=== PATIENT | female | born 1975 | race Two or more races ===

== ENCOUNTER 2018-08-08 20:58 | Emergency (ER) | payer OTHER ==
[~2018-08-08] VITALS: Ht 142.2 cm; Wt 75.7 kg
[2018-08-08] MEDS ORDERED: ALBUTEROL SULF8.5 GM INH (21:12)
[2018-08-08] MEDS ORDERED: QVAR7.3 GM INH (21:12)
[2018-08-08 21:15] VITALS: BP 141/106
--- NOTE | 2018-08-08 21:15 | NUR ---
ED Nurse Note: Evette walked into ED c/o 10/25 lower back pain, patient states that she just woke up with this pain to which it tarted last night, patient states that seh did not fall nor participate in any activities, patient is alert and oriented x4, ambulatory with a steady gait, VSS
[2018-08-08] MEDS ORDERED: Morphine Sulfate 10mg/ml Inj IM ONE (21:30)
[2018-08-08] MEDS ORDERED: IBUPROFEN600 MG ORAL (21:38)
[2018-08-08] MEDS ORDERED: HYDROCODON-ACE1 EA15 ORAL (21:38)
--- NOTE | 2018-08-08 21:39 | Emergency Room Report ---
History of Present Illness General Chief Complaint: Lower Back Pain or Injury Source: Patient Present Illness HPI This is a 42-year-old female with history of asthma. She presents with lower back pain. Onset last night. No trauma. Pain is over the sacrum area and radiate to the buttock area. Worse with certain movement. No fever or chills. No numbness. No nausea no vomiting. No incontinence of bowel or urine. Pain is 8 out of 10. Better with certain position. Worse with movement. Allergies: Coded Allergies: No Known Allergies (Unverified , 08/08/18) Patient History Past Medical History: see triage record, old chart reviewed Past Surgical History: none Pertinent Family History: none Social History: Denies: smoking Last Menstrual Period: 07/26/2018 Now: No Nursing Documentation-[facility] [place] Past Medical History: No History, Except For Hx Asthma: Yes Hx Neurological Problems: Yes - anxiety Review of Systems Eye: Denies: eye pain, blurred vision ENT: Denies: ear pain, nose congestion, throat swelling Respiratory: Denies: cough, shortness of breath Cardiovascular: Denies: chest pain, palpitations Gastrointestinal: Denies: abdominal pain, diarrhea, nausea, vomiting Musculoskeletal: Reports: back pain; Denies: joint pain Skin: Denies: rash Neurological: Denies: headache, numbness Endocrine: Denies: increased thirst, increased urine Hematologic/Lymphatic: Denies: easy bruising All Other Systems: negative except mentioned in HPI Physical Exam Vital Signs Date Time Temp Pulse Resp B/P (MAP) Pulse Ox O2 Delivery O2 Flow Rate FiO2 08/08/18 21:09 98.1 101 16 141/106 99 Room Air vitals normal except for high blood pressure Sp02 EP Interpretation: reviewed, normal General Appearance: well appearing, no apparent distress, alert Head: normocephalic, atraumatic Eyes: bilateral eye PERRL, bilateral eye EOMI ENT: hearing grossly normal, normal pharynx Neck: full range of motion, supple, no meningismus Respiratory: chest non-tender, lungs clear, normal breath sounds Cardiovascular #1: regular rate, rhythm, no murmur Gastrointestinal: normal bowel sounds, non tender, no mass, no organomegaly, no bruit, non-distended Musculoskeletal: back normal - Tenderness to the left mid sacrum., gait/ station normal, normal range of motion Neurologic: alert, oriented x3 Psychiatric: mood/affect normal Skin: warm/dry Medical Decision Making Diagnostic Impression: Primary Impression: Low back pain Qualified Codes: M54.5 - Low back pain ER Course Patient presents with lower back pain with sacroiliitis. No evidence of cauda equina syndrome, spinal or abscess or neoplastic process. No trauma to warrant x-rays. We'll discharge home. Recommend outpatient MRI if not better. Last Vital Signs Date Time Temp Pulse Resp B/P (MAP) Pulse Ox O2 Delivery O2 Flow Rate FiO2 08/08/18 21:15 98.1 83 16 141/106 99 Room Air Status: improved Disposition: HOME, SELF-CARE Condition: Stable Scripts Ibuprofen* (MOTRIN*) 600 Mg Tablet 600 MG ORAL THREE TIMES A DAY, #30 TAB 0 Refills Prov: Ramy Colón MD 08/08/18 Hydrocodone/Acetaminophen 5-325* (HYDROCODONE/ACETAMINOPHEN 5-325*) 1 Each Tablet 1 TAB ORAL Q6H PRN for For Pain, #20 TAB 0 Refills Prov: Ramy Colón MD 08/08/18 Patient Instructions: Back Pain, Adult Additional Instructions: Follow-up with your doctor in 7 days. No heavy lifting. If not better, you may need an MRI. Return if worse. Ramy Colón MD Aug 08, 2018 21:38
[2018-08-08 21:44] VITALS: BP 143/89
--- NOTE | 2018-08-08 21:44 | NUR ---
ER DISCHARGE NOTE: Patient is cleared to be discharged per Dr. Colón. Pain meds given as ordered. Pt is aox4 on room air with stable vital signs. Pt was given dc and prescription instructions and was able to verbalize understanding. Pt's ID band removed. Pt is able to ambulate with steady gait and took all belongings.
== END 2018-08-08 21:50 | disposition home or self-care (01) ==
LOC: EMR 21:46
DX: M54.5 Low back pain (principal); M46.1 Sacroiliitis, not elsewhere classified; F41.9 Anxiety disorder, unspecified
CPT/HCPCS: 96372; 99283; J2270

== ENCOUNTER 2018-10-24 22:28 | Emergency (ER) | payer OTHER ==
[~2018-10-24] VITALS: Ht 142.2 cm; Wt 79.4 kg
[~2018-10-24 22:28] MED LIST: ALBUTEROL SULF8.5 GM INH; HYDROCODON-ACE1 EA15 ORAL; IBUPROFEN600 MG ORAL; QVAR7.3 GM INH
[2018-10-24] MEDS ORDERED: antidepressant (22:42)
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
[2018-10-25 00:20] VITALS: BP 120/83
--- NOTE | 2018-10-25 00:49 | NUR ---
ED Nurse Note: PT BACK FROM CT AND RESTING AT THIS TIME, WILL CONT MONITOR.
[2018-10-25] MEDS ORDERED: IBUPROFEN600 MG ORAL (00:54)
[2018-10-25] MEDS ORDERED: NORCO 5-325 TA1 EACH ORAL (00:54)
[2018-10-25 01:15] VITALS: BP 115/72
--- NOTE | 2018-10-25 01:15 | NUR ---
ED Nurse Note: pt cleared to be d/c pe ERMD, pt discharge and aftercare instruction w/ prescription provided, pt advised to follow up with pcp or return to ed if changes in condition, pt education done via discussion and handout, pt verbalized understanding and agrees with plan, vss, ambulatory w/ steady gait, left w/ all belongings. pt accompanied by zhang.
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
== END 2018-10-25 01:15 | disposition home or self-care (01) ==
LOC: EMR 23:00
DX: S00.83XA Contusion of other part of head, initial encounter (principal); V43.52XA Car driver injured in collision with other type car in traffic accident, initial encounter; Y92.410 Unspecified street and highway as the place of occurrence of the external cause; F41.9 Anxiety disorder, unspecified; M54.6 Pain in thoracic spine
CPT/HCPCS: 70486; 71111; 81025; 99284

== ENCOUNTER 2018-12-11 02:31 | Emergency (ER) | payer OTHER ==
[~2018-12-11] VITALS: Ht 142.2 cm; Wt 79.4 kg
[~2018-12-11 02:31] MED LIST changes: +NORCO 5-325 TA1 EACH ORAL; +antidepressant
--- NOTE | 2018-12-11 02:41 | NUR ---
ED Nurse Note: pt walked in c/o right big toe pain pt reports she accidentally bumped her toe into something yesterday evening. noted dried blood and mild swelling with contusion. cms intact. will cont monitor. ice pack provided for pain/swelling.
--- NOTE | 2018-12-11 02:48 | Emergency Room Report ---
History of Present Illness General Chief Complaint: Lower Extremity Injury Source: Patient Present Illness [facility] This is a 43-year-old female with history of asthma. She presents with chief complaint of right toe injury. She bumped her great toe onto the stairwell. She was bleeding and the nail was lifted up. Since it has been throbbing and painful. No longer bleeding. Pain is 8 out of 10. Worse with walking. Better with rest. No other injury. Allergies: Coded Allergies: No Known Allergies (Unverified , 08/08/18) Patient History Past Medical History: see triage record, old chart reviewed, asthma Past Surgical History: none Pertinent Family History: none Social History: Denies: smoking Now: No Immunizations: other Reviewed Nursing Documentation: PMH: Agreed; PSxH: Agreed Nursing Documentation-PMH Past Medical History: No History, Except For Hx Asthma: Yes Hx Neurological Problems: Yes - anxiety Review of Systems Eye: Denies: eye pain, blurred vision ENT: Denies: ear pain, nose congestion, throat swelling Respiratory: Denies: cough, shortness of breath Cardiovascular: Denies: chest pain, palpitations Gastrointestinal: Denies: abdominal pain, diarrhea, nausea, vomiting Musculoskeletal: Denies: back pain, joint pain Skin: Denies: rash Neurological: Denies: headache, numbness Endocrine: Denies: increased thirst, increased urine Hematologic/Lymphatic: Denies: easy bruising All Other Systems: negative except mentioned in HPI Physical Exam Vital Signs Date Time Temp Pulse Resp B/P (MAP) Pulse Ox O2 Delivery O2 Flow Rate FiO2 12/11/18 02:34 98.4 80 18 121/85 (97) 98 Room Air Vitals normal Sp02 EP Interpretation: reviewed, normal General Appearance: well appearing, no apparent distress, alert Head: normocephalic, atraumatic Eyes: bilateral eye PERRL, bilateral eye EOMI ENT: hearing grossly normal, normal pharynx Neck: full range of motion, supple, no meningismus Respiratory: chest non-tender, lungs clear, normal breath sounds Cardiovascular #1: regular rate, rhythm, no murmur Gastrointestinal: normal bowel sounds, non tender, no mass, no organomegaly, no bruit, non-distended Musculoskeletal: back normal, gait/station normal, normal range of motion, other - Right great toe: The nail is partially lifted off of the nailbed. No active bleeding. No edema. Neurologic: alert, oriented x3 Psychiatric: mood/affect normal Medical Decision Making Diagnostic Impression: Primary Impression: Toenail avulsion Qualified Codes: S91.209A - Unspecified open wound of unspecified toe(s) with damage to nail, initial encounter ER Course Patient with partial toenail avulsion. No laceration in need to be repaired. No fracture. Will discharge home. Told patient that she may lose this nail. No evidence of infection. Other X-Ray Diagnostic Results Other X-Ray Diagnostic Results : X-Ray ordered: Right toe xrays # of Views/Limited Vs Complete: 3 View Indication: Pain EP Interpretation: Yes Interpretation: no dislocation, no soft tissue swelling, no fractures Impression: No acute disease Electronically Signed by: Ramy Colón MD Last Vital Signs Date Time Temp Pulse Resp B/P (MAP) Pulse Ox O2 Delivery O2 Flow Rate FiO2 12/11/18 02:34 98.4 80 18 121/85 (97) 98 Room Air Status: improved Disposition: HOME, SELF-CARE Condition: Stable Scripts Ibuprofen* (MOTRIN*) 600 Mg Tablet 600 MG ORAL THREE TIMES A DAY, #30 TAB 0 Refills Prov: Ramy Colón MD 12/11/18 Additional Instructions: Keep wound clean. Follow-up with your doctor in 7 days. You may lose this nail. Return if worse. Ramy Colón MD Dec 11, 2018 02:48
[2018-12-11] MEDS ORDERED: IBUPROFEN600 MG ORAL (03:20)
--- NOTE | 2018-12-11 03:24 | NUR ---
ER DISCHARGE NOTE: Patient is cleared to be discharged per ERMD, pt is aox4, on room air, with stable vital signs. pt was given dc and prescription instructions, pt was able to verbalize understanding, pt id band removed. pt is able to ambulate with steady gait. pt took all belongings.
[2018-12-11 03:25] VITALS: BP 118/76
== END 2018-12-11 03:24 | disposition home or self-care (01) ==
LOC: EMR 02:44
DX: S91.209A Unspecified open wound of unspecified toe(s) with damage to nail, initial encounter (principal); F41.9 Anxiety disorder, unspecified; J45.909 Unspecified asthma, uncomplicated; W22.09XA Striking against other stationary object, initial encounter; Y92.9 Unspecified place or not applicable; Y99.9 Unspecified external cause status
CPT/HCPCS: 99283